=== PATIENT | female | born 1955 | race Caucasian/White ===

== ENCOUNTER 2017-03-23 14:36 | Emergency (ER) | payer BC ==
[~2017-03-23] VITALS: Ht 154.9 cm; Wt 80.3 kg
== END 2017-03-23 15:42 | disposition short-term general hospital (02) ==
LOC: ER 14:36
DX: S61.211A Laceration without foreign body of left index finger without damage to nail, initial encounter (principal); Z79.899 Other long term (current) drug therapy; Z88.2 Allergy status to sulfonamides; Z88.1 Allergy status to other antibiotic agents; Z88.8 Allergy status to other drugs, medicaments and biological substances; W27.2XXA Contact with scissors, initial encounter